=== PATIENT | female | born 1940 ===

== ENCOUNTER 2019-11-09 14:59 | Emergency (ER) | payer OTHER, MEDICARE, BC ==
[2019-11-09] MEDS ORDERED: Lactated Ringers 1,000 ML IV ONE (15:09)
[2019-11-09] MEDS ORDERED: Sodium Chloride 0.9% 1,000 ML IV ONE (15:15)
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
[2019-11-09 15:55] LABS: CHLORIDE,CL 103 mmol/L (98-107); SODIUM,NA 142 mmol/L (136-145)
[2019-11-09 15:56] LABS: ANION GAP 21.3 mmol/L (10-20)
== END 2019-11-09 15:50 | disposition short-term general hospital (02) ==
LOC: VM.ED 14:59
DX: S32.9XXA Fracture of unspecified parts of lumbosacral spine and pelvis, initial encounter for closed fracture (principal); I95.9 Hypotension, unspecified; E11.9 Type 2 diabetes mellitus without complications; Z79.84 Long term (current) use of oral hypoglycemic drugs; K21.9 Gastro-esophageal reflux disease without esophagitis; Z79.899 Other long term (current) drug therapy; Z88.8 Allergy status to other drugs, medicaments and biological substances; Z91.048 Other nonmedicinal substance allergy status; V49.40XA Driver injured in collision with unspecified motor vehicles in traffic accident, initial encounter
CPT/HCPCS: 71045; 72170; 80053; 80307; 82962; 83605; 84484; 85025; 85610; 85730; 86140; 86850; 86900; 86901; 86920; 86922; 93005; 99285-25